=== PATIENT | female | born 1990 | race Asian ===

== ENCOUNTER 2017-09-05 23:17 | Inpatient (IN) | payer BC ==
[2017-09-06] MEDS ORDERED: MISOPROSTOL 200 MCG TAB PR PRN (00:34)
[2017-09-06] MEDS ORDERED: EPSOM SALT 454 GM TP PRN (00:34)
[2017-09-06] MEDS ORDERED: IBUPROFEN 600 MG TAB PO PRN (00:34)
[2017-09-06] MEDS ORDERED: TERBUTALINE SULFATE 1 MG/ML VIAL IV PRN (00:34)
[2017-09-06] MEDS ORDERED: LR 1,000 ML IV PRN (00:34)
[2017-09-06] MEDS ORDERED: OLIVE OIL 118 ML BTL MISC PRN (00:34)
[2017-09-06] MEDS ORDERED: LIDOCAINE 1% 300 MG/30 ML SDV SC PRN (00:34)
[2017-09-06] MEDS ORDERED: OXYTOCIN/RINGERS LACTATE 1,000 ML IV PRN (00:34)
[2017-09-06] MEDS ORDERED: MISOPROSTOL 100 MCG TAB PO PRN (00:43)
[2017-09-06] MEDS ORDERED: MISOPROSTOL 50 MCG CAP PO PRN (01:18)
[2017-09-06] MEDS ORDERED: AMMONIA AROMATIC 1 EACH AMP IH ONE (01:19)
[2017-09-06 01:23] LABS: PLATELET COUNT 251 10^3/uL (150-400)
[2017-09-06] MEDS: MISOPROSTOL 100 MCG TAB PO SCH ×3 (01:50→19:26)
--- NOTE | 2017-09-06 06:58 | GHP ---
[f rep st] HISTORY AND PHYSICAL DATE OF ADMISSION: 09/05/2017 ADMITTING DIAGNOSES: 1. Intrauterine at 41 weeks and 1 day. 2. Premature rupture of membranes. HISTORY OF PRESENT ILLNESS: Patient is a 27-year-old 1, para 0, at 41 weeks and 1 day with estimated due date 08/27/2017 by ultrasound done at 6 weeks and 4 days. The patient presents to Labor and Delivery with complaints of leakage of fluid about 12 hours prior at 10:30 a.m. on September 05. She states fluid is clear, with no odor and noted a big gush with "a puddle on the floor." The patient denies any contractions at time of rupture. Prior to coming in, contractions are irregular every 7-15 minutes. States good movement. The patient does have good care at [facility], and presented in her first trimester at 7 weeks. is complicated by elevated BMI. The patient is Rh negative, and did receive RhoGAM 06/10/2017. The patient has a history of depression, currently not on any medications. All genetic testing was negative. Anatomy scan was incomplete, needed followup for repeat heart and profile views; anterior placenta. On followup ultrasound, both heart and profile were cleared. However, the right UPJ was dilated at 8 mm. Repeat ultrasound was done at 30 weeks to check kidney growth, right pyelectasis was stable. The patient will need to follow up with Pediatric Urology at [facility]. The patient developed anemia of , tolerating iron. The patient did receive Tdap along with a flu shot in January 2017. GBS culture is negative. OBSTETRICAL HISTORY: This is the patient's 1st . 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 Cycles are irregular every 4-6 weeks, and she usually bleeds for 7 days. Unsure of last menstrual period, but stated 11/11/2016. The patient denies a history of abnormal Pap smears or any exposure to sexually transmitted diseases. She does have a history of control pill used briefly. CURRENT MEDICATIONS: Include vitamins and iron. ALLERGIES: No known drug allergies. MEDICAL HISTORY: Remarkable for eczema, depression diagnosed about 8 years ago. PAST SURGICAL HISTORY: Pins were inserted in left ring finger. Removal of benign facial cyst. FAMILY HISTORY: Father with chronic hypertension. Mother with thyroid dysfunction. Paternal uncle with colon cancer in 60s and multiple myeloma diagnosed in 40s. REVIEW OF SYSTEMS: 10-point review of systems negative. Pertinent positives noted in HPI. LABS: O negative, antibody negative. RPR nonreactive. Rubella immune. Hepatitis B surface antigen negative. HIV negative. Standard panel was negative on 02/16/2017. TSH 0.632. Urine culture negative. Pap, gonorrhea , and chlamydia cultures all negative. Innatal screen negative 02/16/2017. H and H 12.7 and 37.4. 1-hour Glucola 112. Rh antibody at 20 weeks negative, RhoGAM given 06/10/2017. PHYSICAL EXAMINATION: On admission vital signs are stable. Patient is afebrile , well-nourished, well-developed female. Alert and oriented x3. No apparent distress. CARDIOVASCULAR: Regular rate and rhythm. LUNGS: Clear to auscultation bilaterally. ABDOMEN: Gravid, soft, nontender. PELVIC: She is noted to be posterior, dilated to 1 cm, 80% effaced, and -2 station. Cephalic. AmniSure was positive. EXTREMITIES: Normal to inspection without calf tenderness or edema. ASSESSMENT/PLAN: Patient is a 27-year-old 1, para 0, at 41 weeks and 1 day with premature rupture of membranes. 1. Admit to Labor and Delivery. 2. Will start induction of labor with Cytotec orally for cervical ripening. 3. GBS is negative. No prophylactic antibiotics are needed. 4. Patient is afebrile. Will continue to monitor since ruptured now for 12 hours. 5. After cervical ripening, will start Pitocin per protocol. /[id number]/MODL MTDD
[2017-09-06] MEDS ORDERED: LR 500 ML IV PRN (08:23)
[2017-09-06] MEDS ORDERED: OXYTOCIN/RINGERS LACTATE 500 ML IV SCH (08:30)
[2017-09-06] MEDS ORDERED: PHENYLEPHRINE HCL 100 MCG/ML SYR ONE (11:33)
--- NOTE | 2017-09-06 11:34 | OBPROG ---
Labor Progress Note Assessment/Plan: Assessment: 27 y/o @ 41 2/7 weeks with SROM, augmentation of labor with PO Cytotec now in active labor Plan: Pt desires and epidural now, status reassuring. Will hold pitocin as her contractions are regular now spontaneously. 09/06/17 11:32 Subjective/Intrapartum Course: 09/06/17 11:29 Pt is uncomfortable with strong contractions. She has bloody show an is breathing through them every 2 minutes. Objective: 09/06/17 01:00 Patient ABO/Rh O NEGATIVE 09/06/17 01:00 - SVE Dilation (cm): 7 Effacement (%): 90 Station: 0 Membranes: SROM Amniotic Fluid Color: Clear - Contraction Pattern Assessment Current Contraction Pattern: Regular (Q 2) - FHR Assessment Bui FHR (bpm): 130 FHR Pattern Variability: Moderate FHR Category: 1 - AP Antepartum Course: 09/06/17 11:31 H/o Depression, eczema, elevated BMI and Rh negative Oxytocin Orders Assessment - Pre-Induction/Augmentation Assessment Gestational Age: 41 week(s) and 2 day(s) ICD10 Worksheet Patient Problems: Problems Problem Status Onset Normal labor Acute - ICD10 Problem Qualifiers (1) Normal labor
--- NOTE | 2017-09-06 11:42 | PREANESOB ---
Obstetric Pre-Anesthesia Info - General Info Proposed Procedure: labor epidural : 1 Para: 0 KATHI: 08/27/17 Gestational Age: 41 week(s) and 2 day(s) - Labor Status Cervical Dilation per last OB SVE: 7 Station per last OB SVE: 0 Amniotic Fluid Color: Clear Anesthesia Allergies/Adverse Reactions: Allergy/AdvReac Type Severity Reaction Status Date / Time No Known Allergies Allergy Unverified 09/05/17 23:32 Home Medications: Medication Instructions Recorded FOLIC ACID 1 tab PO DAILY 09/05/17 Iron 1 tab PO DAILY 09/05/17 Dha 1 tab PO DAILY 09/05/17 Visit Medications: Generic Name Dose Route Start Last Admin Trade Name Freq PRN Reason Stop Dose Admin Lactated Ringer's 1,000 mls @ 0 mls/hr 09/06/17 00:34 Lr IV 09/07/17 00:33 PRN PRN SEE PROTOCOL CONDITIONS Protocol Per Protocol Lactated Ringer's 500 mls @ 500 mls/hr 09/06/17 08:23 Lr IV 09/07/17 08:23 PRN PRN Maternal Hypotension Oxytocin/Lactated Ringer's 500 mls @ 0 mls/hr 09/06/17 08:30 Pitocin 30 Units/Lr (Premix) IV 03/05/18 08:29 CONT IVÁN Protocol Per Protocol Fentanyl 200 mcg/ Bupivacaine 100 mls @ 0 mls/hr 09/06/17 12:00 HCl 20 ml/ Sodium Chloride EP 09/16/17 11:59 CONT IVÁN Protocol As Directed Ibuprofen 600 mg 09/06/17 00:34 Motrin PO ONCE PRN post , pain Lidocaine HCl 300 mg 09/06/17 00:34 Lidocaine Hcl 1% SC 03/05/18 00:33 ONCE PRN episiotomy Magnesium Sulfate 454 gm 09/06/17 00:34 Epsom Salt TP 03/05/18 00:33 Q1H PRN perineal discomfort Misoprostol 800 - 1,000 mcg 09/06/17 00:34 Cytotec NV ONCE PRN Vaginal Atony/Bleeding Misoprostol 50 mcg 09/06/17 02:00 09/06/17 06:04 Cytotec PO 03/05/18 01:59 50 mcg Q4 IVÁN Administration Sweetwater Oil 118 ml 09/06/17 00:34 Sweet Oil MISC 03/05/18 00:33 ONCE PRN perineal massage Terbutaline Sulfate 0.25 mg 09/06/17 00:34 Brethine IV 03/05/18 00:33 ONCE PRN Tachysystole Discontinued Medications Generic Name Dose Route Start Last Admin Trade Name Freq PRN Reason Stop Dose Admin Ammonia (Aromatic Spirit) Confirm 09/06/17 01:19 Ammonia Aromatic Administered 09/06/17 01:20 Dose 1 each IH .STK-MED ONE Oxytocin/Lactated Ringer's 1,000 mls @ 125 mls/hr 09/06/17 00:34 Pitocin 20 Units/Lr (Premix) IV PRN PRN Post bleeding Misoprostol 100 mcg 09/06/17 00:43 Cytotec PO 03/05/18 00:42 Q4 PRN LABOR INDUCTION Misoprostol 50 mcg 09/06/17 01:18 Cytotec PO 03/05/18 01:17 Q4 PRN LABOR INDUCTION Phenylephrine HCl Confirm 09/06/17 11:33 Neosynephrine Administered 09/06/17 11:34 Dose 1,000 mcg .ROUTE .STK-MED ONE - Vital Signs Height/Weight (Nursing): Height 172.72 cm Weight 112.037 kg - Focused Exam Neck exam: FROM Mallampati Score: Class 2 Mouth exam: normal dental/mouth exam Pulmonary: no respiratory distress Cardiovascular: regular rate and rhythym Labs: 09/06/17 01:00 Patient ABO/Rh O NEGATIVE 09/06/17 01:00 - Plan Anesthetic Plan: labor epidural Consent Signed and on Chart: Yes Patient/Guardian Understands and Agrees to Plan: Yes
[2017-09-06] MEDS ORDERED: fentaNYL 200 MCG, BUPIVACAINE 0.5% 20 ML in NS 100 ML EP SCH (12:00)
[2017-09-06] MEDS ORDERED: LR 500 ML IV SCH (12:00)
[2017-09-06] MEDS ORDERED: LIDOCAINE 1% 2 ML INJ ONE (12:11)
--- NOTE | 2017-09-06 13:33 | OBPROG ---
Labor Progress Note Assessment/Plan: Assessment: 27 y/o @ 41 2/7 weeks with SROM, augmentation of labor with PO Cytotec now in active labor Plan: Pt is doing well making good cx progression. Will re check in 1 hour. status reassuring. 09/06/17 11:32 09/06/17 13:32 Subjective/Intrapartum Course: 09/06/17 11:29 Pt is uncomfortable with strong contractions. She has bloody show an is breathing through them every 2 minutes. 09/06/17 13:31 Pt is now comfortable with her epidural. Objective: 09/06/17 01:00 Patient ABO/Rh O NEGATIVE 09/06/17 01:00 - SVE Dilation (cm): 9 Effacement (%): 100 Station: 0 Membranes: SROM Amniotic Fluid Color: Clear - Contraction Pattern Assessment Current Contraction Pattern: Regular (Q 2-3) - FHR Assessment Bui FHR (bpm): 130 FHR Pattern Variability: Moderate FHR Category: 1 - AP Antepartum Course: 09/06/17 11:31 H/o Depression, eczema, elevated BMI and Rh negative Oxytocin Orders Assessment - Pre-Induction/Augmentation Assessment Gestational Age: 41 week(s) and 2 day(s) ICD10 Worksheet Patient Problems: Problems Problem Status Onset Normal labor Acute - ICD10 Problem Qualifiers (1) Normal labor
[2017-09-06] MEDS ORDERED: HYDROCORTISONE 0.5% CREAM TP PRN (20:29)
[2017-09-06] MEDS ORDERED: ACETAMINOPHEN 325 MG TAB PO PRN (20:29)
[2017-09-06] MEDS ORDERED: SIMETHICONE 80 MG TAB CHEW PO PRN (20:29)
[2017-09-06] MEDS ORDERED: HYDROCODONE/APAP 5/325 TAB PO PRN (20:29)
--- NOTE | 2017-09-06 20:33 | OBDEL ---
Info Type: Vaginal Presentation at Delivery: Vertex L&D Analgesia/Anesthesia Type: Epidural GBS+: No Intrapartum Medications: Generic Name Dose Route Start Last Admin Trade Name Freq PRN Reason Stop Dose Admin Oxytocin/Lactated Ringer's 500 mls @ 0 mls/hr 09/06/17 08:30 09/06/17 18:25 Pitocin 30 Units/Lr (Premix) IV 03/05/18 08:29 500 mls CONT IVÁN Administration Protocol Per Protocol Discontinued Medications Generic Name Dose Route Start Last Admin Trade Name Freq PRN Reason Stop Dose Admin Misoprostol 50 mcg 09/06/17 02:00 09/06/17 19:26 Cytotec PO 03/05/18 01:59 Not Given Q4 [facility] - Hospital Course Intrapartum: 09/06/17 11:29 Pt is uncomfortable with strong contractions. She has bloody show an is breathing through them every 2 minutes. 09/06/17 13:31 Pt is now comfortable with her epidural. Indications for Delivery: SROM (>24 hours) Vaginal Delivery - Delivery Provider Delivery Physician/CNM: Verenice Cloud - Labor and Delivery Onset of Contractions Date: 09/05/17 Onset of Contractions Time: 12:00 Onset of Contractions Type: Induced Rupture of Membranes Date: 09/05/17 Rupture of Membranes Time: 10:30 Rupture of Membranes Type: Spontaneous Amniotic Fluid Color: Clear Dilation Complete Date: 09/06/17 Dilation Complete Time: 17:05 Placenta Delivery Date: 09/06/17 Placenta Delivery Time: 20:12 Total Hours of Labor: 32 Laceration: 2nd Degree Repair: 2-0, Vicryl Vaginal Sponge Count Correct: Yes Vaginal Needle Count Correct: Yes Vaginal Sweep Performed: Yes EBL: 200 Delivery Events: Nuchal Cord (loose x 1) - Medications Labor Augmentation/Induction Methods Used: Pitocin Labor Augmentation/Induction Indication: Other (Specify) (SROM without spontaneous labor) Data KATHI: 08/27/17 Gestational Age: 41 week(s) and 3 day(s) Bui Delivery Date: 09/06/17 Delivery Time: 20:07 Sex of : Male Score (1 Min): 8 Score (5 Min): 8 ICD10 Worksheet Patient Problems: Problems Problem Status Onset Normal labor Acute Prolonged antepartum rupture of membranes Acute - ICD10 Problem Qualifiers (1) Normal labor (2) Prolonged antepartum rupture of membranes
[2017-09-07] MEDS: IBUPROFEN 600 MG TAB PO PRN ×4 (03:52→23:18)
[2017-09-07] MEDS: DOCUSATE SODIUM 100 MG CAP PO PRN ×2 (10:11→23:18)
--- NOTE | 2017-09-07 12:10 | POSTANESTH ---
Post Anesthetic Evaluation Cardiovascular Status: Normal, Stable Respiratory Status: Normal, Stable Level of Consciousness/Mental Status: Can Participate in Eval Pain Control: Adequate, Prn Tx Ordered Nausea/Vomiting Control: Adequate, Prn Tx Ordered Complications Possibly Related to Anesthesia: None Noted
--- NOTE | 2017-09-07 16:17 | OBPP ---
Progress Note Assessment/Plan: Assessment: p1001 ppd# 1 s/p uncomplicated post course breast feeding rh negative / baby rh negative Plan: routine post care 09/07/17 16:14 Subjective/ Course: 09/07/17 16:15 patient is doing well. pain is well controlled. normal lochia. working on breast feeding. denies headache and changes in vision. ambulating. Objective: 09/06/17 01:00 Patient ABO/Rh O NEGATIVE 09/06/17 20:15 Temp Pulse Resp BP Pulse Ox 37.2 C 94 16 110/75 94 09/07/17 01:05 09/07/17 08:00 09/07/17 08:00 09/07/17 08:00 09/07/17 08:00 Physical Exam - Physical Exam Neck: non-tender, full range of motion Respiratory: chest non-tender, lungs clear, normal breath sounds Cardiac/Chest: normal peripheral pulses, regular rate, rhythm Abdomen: normal bowel sounds, hypoactive bowel sounds, non-tender, other ( fundus firm and non tender) Extremities: normal range of motion, non-tender, normal inspection, normal capillary refill Skin: normal color, warm/dry Neuro/Psych: no motor/sensory deficits, alert, normal mood/affect, oriented x 3
[2017-09-08] MEDS: IBUPROFEN 600 MG TAB PO PRN ×2 (05:46→12:26)
[2017-09-08 09:12] VITALS: BP 105/70
--- NOTE | 2017-09-08 10:18 | OBGCSDC ---
General Delivery Information - General Info : 1 Para: 1 Abortions: 0 Type: Vaginal L&D Analgesia/Anesthesia Type: Epidural Admission Date: 09/05/17 Labs: Patient ABO/Rh O NEGATIVE 09/06/17 20:15 Hct 37.8 % (38.0-47.0) L 09/06/17 01:00 - Hospital Course Antepartum: 09/06/17 11:31 H/o Depression, eczema, elevated BMI and Rh negative Intrapartum: 09/06/17 11:29 Pt is uncomfortable with strong contractions. She has bloody show an is breathing through them every 2 minutes. 09/06/17 13:31 Pt is now comfortable with her epidural. : 09/07/17 16:15 patient is doing well. pain is well controlled. normal lochia. working on breast feeding. denies headache and changes in vision. ambulating. 09/08/17 10:43 S) Pt doing well, reports min pain and bleeding. she is ambulating and voiding without difficulty. She is . She desires discharge home today. O) VSS, afebrile constitutional: WNWF, A&Ox3 HEENT: normocephalic, atraumatic, supple Heart: RRR, No murmur Chest: CTA-B Abdomen: Soft, nontender Uterus: Firm at U-2 Lochia: Minimal rubra Perineum: Intact, healing well Extremities: Trace edema, and negative Mariana's sign Neuro: Grossly normal A) 27 year-old S/P PPD#2 going well P) Discharge home today Continue Pelvic rest x6wks Discussed danger signs (infection, preeclampsia, depression, heavy bleeding, etc) Unsure about contraception - will discuss at pp visit RTO in 4/6 weeks Vaginal - Delivery Provider Delivery Physician/CNM: Verenice Cloud - Diagnosis Labor: Induced Rupture of Membranes Type: Spontaneous Amniotic Fluid Color: Clear Laceration: 2nd Degree Repair: 2-0, Vicryl Delivery Events: Nuchal Cord (loose x 1) - Delivery EBL: 200 [place] Data KATHI: 08/27/17 Gestational Age: 41 week(s) and 5 day(s) Bui Delivery Date: 09/06/17 Delivery Time: 20:07 Sex of Infant: Male [place] Weight (gm): 3374 g Score (1 Min): 8 Score (5 Min): 8 Discharge Information - Discharge Information Prescriptions: Ibuprofen [Motrin (*)] 600 mg PO Q6HRS PRN #30 tab PRN Reason: Pain, Mild Docusate Sodium [Colace 100 MG (*)] 100 mg PO BID PRN #60 cap PRN Reason: Constipation Condition: Good Instruction/Follow Up: Two Weeks, Four Weeks
[2017-09-08] MEDS: DOCUSATE SODIUM 100 MG CAP PO PRN (12:26)
== END 2017-09-08 19:19 | disposition home or self-care (01) | DRG 775 ==
LOC: OBSVTOIN 23:17 → INTOOBSV 23:17 → FLD 23:17 → FOB 09-06 22:45
PROVIDERS: ADMIT Obstetrics & Gynecology; ATTEND Obstetrics & Gynecology
PROC: 0KQM0ZZ Repair Perineum Muscle, Open Approach (ICD-10-PCS; principal; 2017-09-06)
PROC: 3E0P7GC Introduction of Other Therapeutic Substance into Female Reproductive, Via Natural or Artificial Opening (ICD-10-PCS; principal; 2017-09-06)
PROC: 3E033VJ Introduction of Other Hormone into Peripheral Vein, Percutaneous Approach (ICD-10-PCS; principal; 2017-09-06)
PROC: 10E0XZZ Delivery of Products of Conception, External Approach (ICD-10-PCS; principal; 2017-09-06)
DX: O63.9 Long labor, unspecified (principal); O70.1 Second degree perineal laceration during delivery; O69.81X0 Labor and delivery complicated by cord around neck, without compression, not applicable or unspecified; O26.893 Other specified pregnancy related conditions, third trimester; Z67.91 Unspecified blood type, Rh negative; Z3A.40 40 weeks gestation of pregnancy; Z37.0 Single live birth
CPT/HCPCS: J2370; J2590; J3010; J3105